=== PATIENT | male | born 1945 | race African-American/Black ===

== ENCOUNTER 2021-07-25 00:37 | Inpatient (IN) | payer OTHER ==
[~2021-07-25] VITALS: Ht 182.9 cm; Wt 91.7 kg
[2021-07-25] MEDS ORDERED: NITROGLYCERIN OINT 1GM/INCH UDPKT TD ONE (01:00)
[2021-07-25] MEDS ORDERED: ASPIRIN 81MG TABLET PO ONE (01:00)
[2021-07-25] MEDS ORDERED: HEPARIN 5000 UNITS/ML VIAL IV ONE (01:15)
[2021-07-25 01:30] LABS: BASOPHILS % 0.9 % (0.0-2.0); EOSINOPHILS % 2.9 % (0.0-5.0); HEMATOCRIT. 38.5 % (42.0-52.0); HEMOGLOBIN. 12.1 g/dL (14.0-18.0); LYMPHOCYTES % 48.4 % (20.0-50.0); MEAN CORPUSCULAR HEMOGLOBIN 23.7 pg (28.0-32.0); MEAN CORPUSCULAR VOLUME 75.4 fL (80.0-94.0); MEAN PLATELET VOLUME 8.6 fl (7.4-10.4); NEUTROPHILS % 40.8 % (40.0-76.0); PLATELET 138 x1000/uL (130-400); RED BLOOD CELL COUNT 5.11 mill/uL (4.7-6.1); RED CELL DISTRIBUTION WIDTH 14.9 % (11.6-14.6)
[2021-07-25 02:07] LABS: CHLORIDE 107 mEq/L (98-107)
[2021-07-25] MEDS ORDERED: ONDANSETRON HCL 4MG/2ML INJ IV PRN (09:30)
[2021-07-25] MEDS ORDERED: ACETAMINOPHEN 325MG TABLET PO PRN (09:30)
[2021-07-25] MEDS ORDERED: NITROGLYCERIN 50MCG/ML 10ML VIAL (CATH LAB) IV ONE (10:38)
[2021-07-25] MEDS ORDERED: HEPARIN SODIUM 1,000 UNIT/1ML VIAL IV ONE (10:38)
[2021-07-25] MEDS ORDERED: NICARDIPINE 100MCG/ML 10ML VIAL (CATH LAB) IV ONE (10:38)
[2021-07-25 12:40] VITALS: BP 138/79
[2021-07-25] MEDS ORDERED: MIDAZOLAM HCL 2 MG/2 ML VIAL ONE (13:27)
[2021-07-25] MEDS ORDERED: FENTANYL CITRATE/PF 50MCG/ML 2ML VIAL ONE (13:27)
[2021-07-25] MEDS ORDERED: VERAPAMIL HCL 2.5 MG/1 ML 2ML VIAL IV ONE (13:28)
[2021-07-25] MEDS ORDERED: IODIXANOL 320MG/ML 100 ML BOTTLE IV ONE (13:28)
[2021-07-25] MEDS ORDERED: LIDOCAINE HCL 1% 20ML VIAL (Pyxis) INJ ONE (13:28)
[2021-07-25] MEDS ORDERED: ATROPINE SULFATE 1MG/10ML SYR IV PRN (15:00)
[2021-07-25] MEDS: ISOSORBIDE MONONITRATE 30MG TABLET SR 24HR PO SCH (16:14)
[2021-07-25 18:00] VITALS: BP 144/59
[2021-07-25] MEDS ORDERED: METO-396 PO (19:28)
[2021-07-25] MEDS ORDERED: ATOR-2 PO (19:28)
[2021-07-25] MEDS ORDERED: CLOP75TA33 PO (19:29)
[2021-07-25] MEDS ORDERED: LOSA25TA26 PO (19:29)
[2021-07-25 20:00] VITALS: BP 126/62
[2021-07-25] MEDS ORDERED: ENOXAPARIN 40MG/0.4ML SYR SUBCUT SCH (21:00)
[2021-07-26] VITALS: BP 110/65
[2021-07-26 04:00] VITALS: BP 126/71
[2021-07-26 07:19] LABS: CHLORIDE 110 mEq/L (98-107)
[2021-07-26 07:54] LABS: BASOPHILS % 0.7 % (0.0-2.0); HEMATOCRIT. 36.4 % (42.0-52.0); HEMOGLOBIN. 11.9 g/dL (14.0-18.0); LYMPHOCYTES % 34.8 % (20.0-50.0); MEAN CORPUSCULAR HEMOGLOBIN 24.2 pg (28.0-32.0); MEAN CORPUSCULAR VOLUME 74.2 fL (80.0-94.0); MONOCYTES % 7.8 % (2.0-8.0); NEUTROPHILS % 54.7 % (40.0-76.0); PLATELET 145 x1000/uL (130-400); RED BLOOD CELL COUNT 4.91 mill/uL (4.7-6.1); RED CELL DISTRIBUTION WIDTH 15.2 % (11.6-14.6)
[2021-07-26 08:00] VITALS: BP 133/74
[2021-07-26] MEDS: ISOSORBIDE MONONITRATE 30MG TABLET SR 24HR PO SCH (08:23)
[2021-07-26] MEDS ORDERED: CLOPIDOGREL 75MG TABLET PO SCH (09:00)
[2021-07-26] MEDS ORDERED: ASPIRIN 81MG TABLET PO SCH (09:00)
[2021-07-26 11:50] VITALS: BP 122/74
[2021-07-26 12:00] VITALS: BP 127/65
== END 2021-07-26 22:01 | disposition home or self-care (01) | DRG 287 ==
LOC: ER 00:37 → MICUSO 05:22 → EDBEDREQTM 05:27 → EDBEDREQ 05:27 → EDBEDREQSVC 11:01 → 5EST 13:32
PROVIDERS: ADMIT Internal Medicine; ATTEND Internal Medicine
PROC: B211YZZ Fluoroscopy of Multiple Coronary Arteries using Other Contrast (ICD-10-PCS; principal; 2021-07-25)
PROC: 4A023N7 Measurement of Cardiac Sampling and Pressure, Left Heart, Percutaneous Approach (ICD-10-PCS; 2021-07-25)
PROC: B54MZZA Ultrasonography of Right Upper Extremity Veins, Guidance (ICD-10-PCS; 2021-07-25)
DX: I25.110 Atherosclerotic heart disease of native coronary artery with unstable angina pectoris (principal); E44.1 Mild protein-calorie malnutrition; E78.5 Hyperlipidemia, unspecified; R00.1 Bradycardia, unspecified; Z20.822 Contact with and (suspected) exposure to COVID-19; D72.819 Decreased white blood cell count, unspecified; I10 Essential (primary) hypertension; I25.2 Old myocardial infarction; Z68.27 Body mass index [BMI] 27.0-27.9, adult; Z95.5 Presence of coronary angioplasty implant and graft
CPT/HCPCS: 36415; 71045; 80048; 80053; 83880; 84484; 85025; 85347; 85379; 87426; 93005; 93458; 99291; C1769; C1887; C1893; J1644; J2250; J3010; J3490; Q9967